=== PATIENT | male | born 1980 | race Caucasian/White ===

== ENCOUNTER 2022-09-16 18:18 | Emergency (ER) | payer OTHER ==
[~2022-09-16] VITALS: Ht 175.3 cm; Wt 61.2 kg
[2022-09-16 19:43] VITALS: BP 132/78
== END 2022-09-16 20:29 | disposition home or self-care (01) ==
LOC: EDH 18:18
DX: H60.322 Hemorrhagic otitis externa, left ear (principal); Z98.890 Other specified postprocedural states; Z88.8 Allergy status to other drugs, medicaments and biological substances
CPT/HCPCS: 99282